=== PATIENT | female | born 1965 | race Caucasian/White ===

== ENCOUNTER → 2024-05-26 13:01 | Outpatient (REF) | payer BC, SELFPAY | LOC: HWWDC 13:01 | PROVIDERS: ATTENDING PHYSICIAN Family Medicine | DX: Z12.31 Encounter for screening mammogram for malignant neoplasm of breast (principal) | CPT/HCPCS: 77063; 77067 ==

== ENCOUNTER → 2024-06-17 10:21 | Outpatient (REF) | payer BC, SELFPAY ==
[2024-06-17 11:43] LABS: % Basophils 0.4 % (0-2); % Eosinophils 1.7 % (0-6); % Immature Granulocytes 0.4 % (0-0.5); % Lymphocytes 32.7 % (20.5-51.1); % Monocytes 8.1 % (1.7-9.3); % Neutrophils 56.7 % (42.2-75.2); Absolute Eosinophils 0.1 10^3/uL (0-0.7); Absolute Lymphocytes 1.6 10^3/uL (1.2-3.4); Absolute Monocytes 0.4 10^3/uL (0.1-0.6); Absolute Neutrophils 2.7 10^3/uL (1.4-6.5); Hemoglobin 13.6 g/dL (12.0-16.0); Mean Corp Hgb Conc. 35.8 g/dL (33.0-37.0); Mean Corpuscular Hgb 28.8 pg (27.0-31.0); Mean Corpuscular Volume 80.3 fL (81.0-99.0); Mean Platelet Volume 9.6 fL (7.4-10.4); Nucleated Red Blood Cells % 0 %; Platelet Count 275 10^3/uL (130-400); Red Blood Cell Count 4.73 10^6/uL (4.20-5.40); Red Cell Dist. Width 12.6 % (11.5-14.5); White Blood Cell Count 4.8 10^3/uL (4.8-10.8)
[2024-06-17 12:03] LABS: Urine Albumin Negative (Neg - Trace); Urine Bilirubin Negative (Negative); Urine Character Clear (Clear); Urine Color Yellow; Urine Glucose Negative (Negative); Urine Ketone Negative (Negative); Urine Leukocyte Trace (Negative); Urine Nitrite Negative (Negative); Urine Occult Blood Negative (Negative); Urine Specific Gravity 1.015 (<1.030); Urine Urobilinogen Negative (Neg - 1+); Urine pH 6.5 (5.0-9.0)
[2024-06-17 12:17] LABS: Urine Bacteria Few (Negative); Urine Red Blood Cell 0-2 /HPF (0-2)
[2024-06-17 12:21] LABS: ALT (SGPT) 14 U/L (0-35); AST (SGOT) 21 U/L (14-36); Albumin 3.9 g/dl (3.5-5.0); Alkaline Phosphatase 59 U/L (38-126); Blood Urea Nitrogen 13 mg/dl (7-17); Calcium 9.6 mg/dl (8.4-10.2); Carbon Dioxide 21 mmol/L (22-30); Chloride 111 mmol/L (98-107); Glucose 79 mg/dl (70-99); HDL Cholesterol 71 mg/dl; LDL Cholesterol, Calculated 79 mg/dl; Sodium 140 mmol/L (135-145); Total Bilirubin 0.5 mg/dl (0.2-1.3); Total Cholesterol 165 mg/dl (50-199); Total Protein 5.9 g/dl (6.3-8.2); Triglyceride 79 mg/dl (10-149); Very Low Density Lipoprotein 15 mg/dl (0-30); eGFR > 60.00
[2024-06-17 12:26] LABS: Glycohemoglobin (HgbA1c) 4.7 % (4.0-5.6)
[2024-06-17 12:32] LABS: Vitamin D, 25-OH*** 21.3 ng/mL (30-80)
[2024-06-17 12:57] LABS: Ferritin 11.7 ng/ml (11.1-264.0)
== END ==
LOC: REG 10:21
PROVIDERS: ATTENDING PHYSICIAN Family Medicine
DX: E66.9 Obesity, unspecified (principal); K21.9 Gastro-esophageal reflux disease without esophagitis; F41.9 Anxiety disorder, unspecified; E55.9 Vitamin D deficiency, unspecified; R79.9 Abnormal finding of blood chemistry, unspecified
CPT/HCPCS: 36415; 80053; 80061; 81003; 81015; 82306; 82728; 83036; 84443; 85025

== ENCOUNTER → 2025-05-28 12:51 | Outpatient (REF) | payer BC, SELFPAY ==
[2025-05-28 15:56] LABS: Hematocrit 40.4 % (37.0-47.0); Hemoglobin 13.8 g/dL (12.0-16.0); Mean Corp Hgb Conc. 34.2 g/dL (33.0-37.0); Mean Corpuscular Volume 83.6 fL (81.0-99.0); Nucleated Red Blood Cells % 0 %; Platelet Count 309 10^3/uL (130-400); Red Cell Dist. Width 12.3 % (11.5-14.5)
[2025-05-28 16:17] LABS: ALT (SGPT) 11 U/L (0-35); AST (SGOT) 16 U/L (14-36); Albumin 3.9 g/dl (3.5-5.0); Alkaline Phosphatase 46 U/L (38-126); Blood Urea Nitrogen 9 mg/dl (7-17); Calcium 9.6 mg/dl (8.4-10.2); Carbon Dioxide 25 mmol/L (22-30); Chloride 109 mmol/L (98-107); Glucose 83 mg/dl (70-99); HDL Cholesterol 55 mg/dl; LDL Cholesterol, Calculated 75 mg/dl; Potassium 4.0 mmol/L (3.5-5.1); Sodium 139 mmol/L (135-145); Total Protein 6.1 g/dl (6.3-8.2); Very Low Density Lipoprotein 31 mg/dl (0-30); eGFR > 60.00
[2025-05-28 16:19] LABS: Urine Character Clear (Clear)
[2025-05-28 16:33] LABS: Urine Red Blood Cell 50-60 /HPF (0-2); Urine Squamous Cell 0-2 /LPF (Few); Urine White Cell 0-2 /HPF (0-5)
[2025-05-28 16:33] LABS: Vitamin D, 25-OH*** 20.2 ng/mL (30-80)
[2025-05-29 10:16] LABS: Glycohemoglobin (HgbA1c) 4.8 % (4.0-5.6)
== END ==
LOC: HWWDC 12:51
PROVIDERS: ATTENDING PHYSICIAN Family Medicine
DX: Z12.31 Encounter for screening mammogram for malignant neoplasm of breast (principal); Z00.00 Encounter for general adult medical examination without abnormal findings; K21.9 Gastro-esophageal reflux disease without esophagitis; G43.909 Migraine, unspecified, not intractable, without status migrainosus; E55.9 Vitamin D deficiency, unspecified; R35.0 Frequency of micturition; R79.9 Abnormal finding of blood chemistry, unspecified
CPT/HCPCS: 36415; 77063; 77067; 80053; 80061; 81003; 81015; 82248; 82306; 83036; 84443; 85025; 87086

== ENCOUNTER → 2025-07-06 14:08 | Outpatient (REF) | payer BC, SELFPAY | LOC: HWRAD 14:08 | PROVIDERS: ATTENDING PHYSICIAN Urology; FAMILY PHYSICIAN Family Medicine | DX: Z87.442 Personal history of urinary calculi (principal) | CPT/HCPCS: 76770 ==